=== PATIENT | female | born 1995 | race African-American/Black ===

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

== ENCOUNTER 2017-02-27 15:25 | Emergency (ER) | payer MEDICAID ==
[~2017-02-27] VITALS: Ht 160 cm; Wt 49.9 kg
[2017-02-27 16:09] VITALS: BP 131/55
[2017-02-27] MEDS ORDERED: cefTRIAXone SOD 500 MG VL IM ONE (16:45)
== END 2017-02-27 17:16 | disposition home or self-care (01) ==
LOC: ER 15:25
DX: N76.0 Acute vaginitis (principal); B96.89 Other specified bacterial agents as the cause of diseases classified elsewhere; N39.0 Urinary tract infection, site not specified; Z20.2 Contact with and (suspected) exposure to infections with a predominantly sexual mode of transmission
CPT/HCPCS: 81002; 96372; 99283; J0696

== ENCOUNTER 2017-03-19 20:03 | Emergency (ER) | payer MEDICAID ==
[~2017-03-19] VITALS: Ht 160 cm; Wt 49.9 kg
[2017-03-19 20:42] LABS: Urine Bilirubin Negative (Negative); Urine Blood 2+ /uL (Negative); Urine Color Yellow (Yellow); Urine Glucose Normal (Normal); Urine Ketone Negative (Negative); Urine Mucus FEW (None Seen); Urine Nitrite Negative (Negative); Urine RBC 1 /hpf (0 - 4); Urine Squamous Epithelial Cell FEW /hpf (<5); Urine Urobilinogen Normal (Negative); Urine pH 5.5 (5.0-8.0)
[2017-03-20] MEDS ORDERED: cefTRIAXone SODIUM 250 MG VL IM ONE
[2017-03-20] MEDS ORDERED: AZITHROMYCIN 250 MG TAB PO ONE
[2017-03-20 00:08] VITALS: BP 119/78
[2017-03-20] MEDS ORDERED: LIDOCAINE 1% HCL (LOCAL ANESTH.) INJ 20ML MDV ONE (00:26)
== END 2017-03-20 00:44 | disposition home or self-care (01) ==
LOC: ER 20:03
DX: N39.0 Urinary tract infection, site not specified (principal); A64 Unspecified sexually transmitted disease
CPT/HCPCS: 81001; 81025; 96372; 99284; J0696; J2001